=== PATIENT | male | born 1935 | race Two or more races ===

== ENCOUNTER 2021-08-24 06:33 | Day surgery (SDC) | payer OTHER ==
[~2021-08-24] VITALS: Ht 177.8 cm; Wt 88.0 kg
[~2021-08-24 06:33] MED LIST: CASODEX50 MG PO; KEPPRA1000 MG PO; LEVOTHYROXINE25 MCG PO; UROXATRAL10 MG PO; ZOCOR20 MG PO
[2021-08-24] MEDS ORDERED: FLUOCINONIDE15 GM (08:51)
[2021-08-24] MEDS ORDERED: INTEGRA PLUS C1 EACH (08:52)
[2021-08-24] MEDS ORDERED: DICLOFENAC SOD100 MG (08:53)
[2021-08-24] MEDS ORDERED: DICLOFENAC POTA50 MG (08:54)
== END 2021-08-24 16:30 | disposition home or self-care (01) ==
LOC: CIR.AMB 06:33 → SURH 06:33 → O/R 06:33 → SURH 08:00 → EDSTATUS 08:00 → SURH 08:30 → CIR.AMB 16:30 → O/R 16:30
PROVIDERS: ATTEND Urology
DX: C67.5 Malignant neoplasm of bladder neck (principal); Z20.822 Contact with and (suspected) exposure to COVID-19; Z87.891 Personal history of nicotine dependence; E03.9 Hypothyroidism, unspecified; G40.802 Other epilepsy, not intractable, without status epilepticus

== ENCOUNTER 2021-11-23 07:30 | Day surgery (SDC) | payer OTHER ==
[~2021-11-23 07:30] MED LIST changes: +DICLOFENAC POTA50 MG; +DICLOFENAC SOD100 MG; +FLUOCINONIDE15 GM; +INTEGRA PLUS C1 EACH
== END 2021-11-23 16:43 | disposition home or self-care (01) ==
LOC: U 07:30 → CIR.AMB 07:30
PROVIDERS: ATTEND Urology
DX: C61 Malignant neoplasm of prostate (principal); Z20.822 Contact with and (suspected) exposure to COVID-19

== ENCOUNTER → 2022-01-25 | Outpatient (CLI) | payer OTHER | END | disposition home or self-care (01) | LOC: LAB 18:30 | PROVIDERS: ATTEND Urology | DX: N30.00 Acute cystitis without hematuria (principal) ==

== ENCOUNTER 2022-04-19 21:28 | Emergency (ER) | payer OTHER ==
[~2022-04-19] VITALS: Ht 177.8 cm; Wt 83.0 kg
[2022-04-20] MEDS ORDERED: PYRIDIUM100 M1 PO (05:23)
[2022-04-20] MEDS ORDERED: BACTRIM DS TAB1 EACH PO (05:23)
[2022-04-20] MEDS ORDERED: CEFDINIR300 MG PO (05:34)
== END 2022-04-20 05:45 | disposition home or self-care (01) ==
LOC: ER 21:28
DX: N39.0 Urinary tract infection, site not specified (principal); C61 Malignant neoplasm of prostate; R41.0 Disorientation, unspecified; Z20.822 Contact with and (suspected) exposure to COVID-19

== ENCOUNTER 2022-06-30 11:59 | Emergency (ER) | payer OTHER ==
[~2022-06-30] VITALS: Ht 175.3 cm; Wt 72.6 kg
[~2022-06-30 11:59] MED LIST changes: +BACTRIM DS TAB1 EACH PO; +CEFDINIR300 MG PO; +PYRIDIUM100 M1 PO
[2022-06-30] MEDS ORDERED: LEVOFLOXACIN500 MG PO (16:02)
== END 2022-06-30 16:11 | disposition home or self-care (01) ==
LOC: ER 11:59
DX: N39.0 Urinary tract infection, site not specified (principal)

== ENCOUNTER 2022-07-20 15:24 | Emergency (ER) | payer OTHER ==
[~2022-07-20] VITALS: Ht 157.5 cm; Wt 75.7 kg
[~2022-07-20 15:24] MED LIST changes: +LEVOFLOXACIN500 MG PO
[2022-07-20] MEDS ORDERED: MACROBID 100 M100 MG (15:51)
[2022-07-20] MEDS ORDERED: CASODEX50 MG (15:51)
== END 2022-07-20 18:21 | disposition home or self-care (01) ==
LOC: ER 15:24
DX: M94.0 Chondrocostal junction syndrome [Tietze] (principal); N39.0 Urinary tract infection, site not specified; Z20.822 Contact with and (suspected) exposure to COVID-19

== ENCOUNTER 2023-01-02 18:25 | Inpatient (IN) | payer OTHER ==
[~2023-01-02] VITALS: Ht 180.3 cm; Wt 68.0 kg
[~2023-01-02 18:25] MED LIST changes: +CASODEX50 MG; +MACROBID 100 M100 MG
[2023-01-02] MEDS ORDERED: SIMVASTATIN20 MG (18:56)
[2023-01-02] MEDS ORDERED: LAMICTAL25 M1 (18:57)
[2023-01-02] MEDS ORDERED: METHENAMINE HIPP1 GM (18:58)
== END 2023-01-09 11:36 | disposition home or self-care (01) | DRG 689 ==
LOC: ER 18:25 → MEDI 23:15
PROVIDERS: ADMIT Internal Medicine; ATTEND Internal Medicine
PROC: BW21YZZ Computerized Tomography (CT Scan) of Abdomen and Pelvis using Other Contrast (ICD-10-PCS; principal; 2023-01-04)
DX: N39.0 Urinary tract infection, site not specified (principal); A41.9 Sepsis, unspecified organism; E86.0 Dehydration; N41.8 Other inflammatory diseases of prostate; B96.20 Unspecified Escherichia coli [E. coli] as the cause of diseases classified elsewhere; E03.9 Hypothyroidism, unspecified; E78.5 Hyperlipidemia, unspecified; C67.9 Malignant neoplasm of bladder, unspecified; Z20.822 Contact with and (suspected) exposure to COVID-19; I10 Essential (primary) hypertension

== ENCOUNTER 2023-03-31 16:19 | Inpatient (IN) | payer OTHER ==
[~2023-03-31] VITALS: Ht 175.3 cm; Wt 81.6 kg
[~2023-03-31 16:19] MED LIST changes: +LAMICTAL25 M1; +METHENAMINE HIPP1 GM; +SIMVASTATIN20 MG
[2023-03-31] MEDS ORDERED: PEPCID AC10 MG (16:54)
[2023-03-31 18:23] LABS: HEMATOCRIT 38.4 % (39.0-48.0); HEMOGLOBIN 13.3 g/dL (13-16.00); MEAN CELL VOLUME 93.6 fL (80.0-100.00); MEAN CORPUSCULAR HEMOGLOBIN 32.3 pg (27.00-32.0); MEAN CORPUSCULAR HGB CONC 34.5 g/dl (32.0-36.0); PLATELET COUNT 162 K/uL (150-450); RED CELL DISTRIBUTION WIDTH 13.6 % (11.5-14.5)
[2023-03-31 18:55] LABS: CALCIUM 9.3 mg/dL (8.5-10.1); CREATININE SERUM 1.41 mg/dL (0.70-1.30); GFR 47.77; POTASSIUM 3.73 mEq/L (3.5-5.1)
[2023-03-31 19:21] LABS: URINE EPITHELIAL CELLS 3.5 uL (0.0-38.8); URINE RBC 259.4 uL (0.0-20.8)
[2023-03-31 19:30] LABS: PH,URINE 6.5 (5.0-8.0); URINE APPEARANCE Turbid; URINE BILIRRUBIN Negative (NEGATIVE); URINE BLOOD Large; URINE COLOR Yellow; URINE GLUCOSE Negative (NEGATIVE); URINE LEUKOCYTE Large; URINE NITRATE Negative
[2023-03-31 19:45] LABS: URINE PROTEIN 300 (NEGATIVE); URINE WBC > 5548.3 uL (0.0-23.2)
[2023-03-31 19:46] LABS: URINE BACTERIA > 9821.2 uL (0.0-1933)
[2023-04-01 04:04] LABS: INR 1.04; PARTIAL THROMBOPLASTIN TIME 32.5 SECONDS (22.0-34.0); PROTHROMBIN TIME 10.9 SECONDS (9.0-11.5)
[2023-04-02 08:42] LABS: ALBUMIN 2.9 gm/dL (3.4-5.0); BILIRUBIN TOTAL 0.79 mg/dL (0.3-1.2); CALCIUM 8.4 mg/dL (8.5-10.1); CREATININE SERUM 0.94 mg/dL (0.70-1.30); GFR 76.27; POTASSIUM 3.43 mEq/L (3.5-5.1); TOTAL PROTEIN 5.9 gm/dL (6.4-8.2)
[2023-04-02 08:43] LABS: HEMATOCRIT 33.5 % (39.0-48.0); HEMOGLOBIN 12.1 g/dL (13-16.00); MEAN CELL VOLUME 92.3 fL (80.0-100.00); MEAN CORPUSCULAR HEMOGLOBIN 33.2 pg (27.00-32.0); RED BLOOD COUNT 3.63 M/uL (4.00-6.00); RED CELL DISTRIBUTION WIDTH 13.6 % (11.5-14.5)
[2023-04-02 08:49] LABS: PLATELET COUNT 119 K/uL (150-450)
[2023-04-02 10:56] LABS: HEMATOCRIT 34.1 % (39.0-48.0); HEMOGLOBIN 11.9 g/dL (13-16.00); MEAN CELL VOLUME 93.2 fL (80.0-100.00); MEAN CORPUSCULAR HEMOGLOBIN 32.5 pg (27.00-32.0); MEAN CORPUSCULAR HGB CONC 34.9 g/dl (32.0-36.0); RED BLOOD COUNT 3.66 M/uL (4.00-6.00); RED CELL DISTRIBUTION WIDTH 13.5 % (11.5-14.5)
[2023-04-02 10:57] LABS: PLATELET COUNT 126 K/uL (150-450)
[2023-04-02 11:27] LABS: ALBUMIN 3.2 gm/dL (3.4-5.0); CALCIUM 8.6 mg/dL (8.5-10.1); CREATININE SERUM 0.91 mg/dL (0.70-1.30); GFR 79.18; POTASSIUM 3.37 mEq/L (3.5-5.1)
[2023-04-02 11:38] LABS: PHOSPHOROUS 1.9 mg/dL (2.5-4.9)
[2023-04-03 07:02] LABS: BILIRUBIN TOTAL 0.83 mg/dL (0.3-1.2); CALCIUM 8.5 mg/dL (8.5-10.1); CREATININE SERUM 0.9 mg/dL (0.70-1.30); GFR 80.2; GLOBULINA 2.6 G/DL (2.4-3.5); PHOSPHOROUS 2.6 mg/dL (2.5-4.9); POTASSIUM 3.58 mEq/L (3.5-5.1); TOTAL PROTEIN 5.6 gm/dL (6.4-8.2)
[2023-04-03 07:13] LABS: PH,URINE 6.5 (5.0-8.0); URINE APPEARANCE Clear; URINE BILIRRUBIN Negative (NEGATIVE); URINE BLOOD Small; URINE COLOR Yellow; URINE GLUCOSE Negative (NEGATIVE); URINE LEUKOCYTE Small; URINE NITRATE Negative; URINE PROTEIN Negative (NEGATIVE)
[2023-04-03 07:15] LABS: URINE BACTERIA 13.8 uL (0.0-1933); URINE RBC 37.6 uL (0.0-20.8); URINE WBC 279.3 uL (0.0-23.2)
[2023-04-03 07:22] LABS: URINE EPITHELIAL CELLS 1.2 uL (0.0-38.8)
[2023-04-03 07:31] LABS: C-REACTIVE PROTEIN 11.8 MG/DL (0.00-0.29)
[2023-04-03 07:50] LABS: HEMATOCRIT 32.9 % (39.0-48.0); MEAN CELL VOLUME 91.2 fL (80.0-100.00); MEAN CORPUSCULAR HEMOGLOBIN 33.1 pg (27.00-32.0); MEAN CORPUSCULAR HGB CONC 36.3 g/dl (32.0-36.0); RED BLOOD COUNT 3.61 M/uL (4.00-6.00); RED CELL DISTRIBUTION WIDTH 13.4 % (11.5-14.5)
[2023-04-03 08:04] LABS: PLATELET COUNT 133 K/uL (150-450)
[2023-04-05 08:57] LABS: BILIRUBIN TOTAL 0.79 mg/dL (0.3-1.2); CALCIUM 8.6 mg/dL (8.5-10.1); CREATININE SERUM 0.9 mg/dL (0.70-1.30); GFR 80.2; GLOBULINA 2.7 G/DL (2.4-3.5); MAGNESIUM 2.1 mg/dL (1.8-2.4); PHOSPHOROUS 2.9 mg/dL (2.5-4.9); POTASSIUM 4.75 mEq/L (3.5-5.1); TOTAL PROTEIN 5.7 gm/dL (6.4-8.2)
[2023-04-05 15:57] LABS: MEAN CELL VOLUME 92.6 fL (80.0-100.00); MEAN CORPUSCULAR HEMOGLOBIN 31.9 pg (27.00-32.0); MEAN CORPUSCULAR HGB CONC 34.4 g/dl (32.0-36.0); PLATELET COUNT 174 K/uL (150-450); RED BLOOD COUNT 3.78 M/uL (4.00-6.00); RED CELL DISTRIBUTION WIDTH 13.5 % (11.5-14.5)
== END 2023-04-08 16:27 | disposition home or self-care (01) | DRG 872 ==
LOC: ER 16:20 → MEDI 23:41
PROVIDERS: General Practice; Internal Medicine Infectious Disease; ADMIT Internal Medicine; ATTEND Internal Medicine
PROC: B020ZZZ Computerized Tomography (CT Scan) of Brain (ICD-10-PCS; 2023-03-31)
PROC: 0T9B70Z Drainage of Bladder with Drainage Device, Via Natural or Artificial Opening (ICD-10-PCS; principal; 2023-04-07)
DX: A41.9 Sepsis, unspecified organism (principal); N39.0 Urinary tract infection, site not specified; M62.82 Rhabdomyolysis; N17.9 Acute kidney failure, unspecified; B96.20 Unspecified Escherichia coli [E. coli] as the cause of diseases classified elsewhere; Z86.19 Personal history of other infectious and parasitic diseases; C67.9 Malignant neoplasm of bladder, unspecified; W19.XXXA Unspecified fall, initial encounter; E03.9 Hypothyroidism, unspecified; E78.5 Hyperlipidemia, unspecified

== ENCOUNTER 2023-04-11 09:53 | Day surgery (SDC) | payer OTHER ==
[~2023-04-11 09:53] MED LIST changes: +PEPCID AC10 MG
== END 2023-04-11 22:25 | disposition home or self-care (01) ==
LOC: CIR.AMB 09:53
PROVIDERS: ATTEND Urology
DX: C67.9 Malignant neoplasm of bladder, unspecified (principal); Z20.822 Contact with and (suspected) exposure to COVID-19

== ENCOUNTER 2024-01-09 19:14 | Inpatient (IN) | payer OTHER ==
[~2024-01-09] VITALS: Ht 180.3 cm; Wt 83.9 kg
[2024-01-09] MEDS ORDERED: CEFTRIAXONE SODIUM 2,000 MG VIAL ONE (19:52)
[2024-01-09] MEDS ORDERED: 0.9 % SODIUM CHLORIDE 500 ML IV ONE (20:00)
[2024-01-09] MEDS ORDERED: CEFTRIAXONE SODIUM 2,000 MG VIAL IV ONE (20:00)
[2024-01-09 20:34] LABS: HEMATOCRIT 37.3 % (39.0-48.0); MEAN CELL VOLUME 93.5 fL (80.0-100.00); MEAN CORPUSCULAR HEMOGLOBIN 32.6 pg (27.00-32.0); MEAN CORPUSCULAR HGB CONC 34.9 g/dl (32.0-36.0); PLATELET COUNT 182 K/uL (150-450); RED BLOOD COUNT 3.99 M/uL (4.00-6.00); RED CELL DISTRIBUTION WIDTH 13.5 % (11.5-14.5)
[2024-01-09 20:43] LABS: PH,URINE 6.5 (5.0-8.0); URINE APPEARANCE Cloudy; URINE BILIRRUBIN Negative (NEGATIVE); URINE BLOOD Large; URINE COLOR Yellow; URINE GLUCOSE Negative (NEGATIVE); URINE KETONE Negative (NEGATIVE); URINE LEUKOCYTE Large; URINE NITRATE Negative; URINE PROTEIN 30 (NEGATIVE)
[2024-01-09 20:48] LABS: URINE BACTERIA 64.2 uL (0.0-1933); URINE RBC 76.4 uL (0.0-20.8); URINE WBC 1242.3 uL (0.0-23.2)
[2024-01-09 20:55] LABS: ALBUMIN 3.8 gm/dL (3.4-5.0); BILIRUBIN TOTAL 1.45 mg/dL (0.3-1.2); CALCIUM 9.7 mg/dL (8.5-10.1); CREATININE SERUM 1.35 mg/dL (0.70-1.30); GFR 50.11; GLOBULINA 3.1 G/DL (2.4-3.5); POTASSIUM 4.37 mEq/L (3.5-5.1); TOTAL PROTEIN 6.9 gm/dL (6.4-8.2)
[2024-01-09] MEDS ORDERED: MEROPENEM 500 MG/VIAL VIAL IV SCH (21:32)
[2024-01-09 22:05] LABS: ABG PH 7.471 (7.35-7.45); ABG PO2 76.9 mmHg (80-100); ABG pCO2 33.7 mmHg (35-45); SaO2 96.2 %
[2024-01-09 22:06] LABS: Tco2 25.1 mmol/l; allen test SATISFACTORY; o2 21 %; puncture site RADIAL RIGHT
[2024-01-09] MEDS ORDERED: 0.9 % SODIUM CHLORIDE 1,000 ML IV SCH (23:45)
[2024-01-10 00:21] VITALS: BP 139/72; O2SAT 95
[2024-01-10 05:40] VITALS: BP 167/83; O2SAT 95
[2024-01-10] MEDS ORDERED: LEVOTHYROXINE SODIUM 25 MCG TABLET PO SCH (06:00)
[2024-01-10] MEDS ORDERED: LevETIRAcetam 500 MG/5 ML VIAL IV SCH (09:00)
[2024-01-10] MEDS ORDERED: LAMICTAL 25 MG PO SCH (09:00)
[2024-01-10] MEDS ORDERED: TAMSULOSIN HCL 0.4 MG CAP PO SCH (09:00)
[2024-01-10] MEDS ORDERED: ENOXAPARIN SODIUM 30 MG/0.3 ML SYRINGE SUBCUTANEO SCH (09:00)
[2024-01-10 09:14] VITALS: BP 170/90; O2SAT 98
[2024-01-10 15:40] LABS: HEMATOCRIT 38.1 % (39.0-48.0); HEMOGLOBIN 13.5 g/dL (13-16.00); MEAN CELL VOLUME 92.5 fL (80.0-100.00); MEAN CORPUSCULAR HEMOGLOBIN 32.9 pg (27.00-32.0); MEAN CORPUSCULAR HGB CONC 35.5 g/dl (32.0-36.0); PLATELET COUNT 144 K/uL (150-450); RED BLOOD COUNT 4.11 M/uL (4.00-6.00); RED CELL DISTRIBUTION WIDTH 13.3 % (11.5-14.5)
[2024-01-10 16:40] LABS: ALBUMIN 3.4 gm/dL (3.4-5.0); BILIRUBIN TOTAL 0.95 mg/dL (0.3-1.2); CALCIUM 9.1 mg/dL (8.5-10.1); CREATININE SERUM 1.68 mg/dL (0.70-1.30); GFR 38.93; POTASSIUM 3.49 mEq/L (3.5-5.1); TOTAL PROTEIN 6.4 gm/dL (6.4-8.2)
[2024-01-10 16:44] LABS: C-REACTIVE PROTEIN 27.1 MG/DL (0.00-0.29)
[2024-01-10 16:51] LABS: TSH 0.853 uIU/mL (0.358-3.74)
[2024-01-10] MEDS ORDERED: PANTOPRAZOLE SODIUM 40 MG/VIAL VIAL IV SCH (17:00)
[2024-01-10 19:15] VITALS: BP 188/92
[2024-01-11] MEDS ORDERED: LevETIRAcetam 5 MG/1 ML REDILUIDO IV SCH
[2024-01-11] MEDS ORDERED: NIFEDIPINE 30 MG TAB.SA.OSM PO SCH (01:28)
[2024-01-11] MEDS ORDERED: SODIUM CHLORIDE 0.45 % 1,000 ML IV SCH (01:30)
[2024-01-11 02:30] VITALS: BP 128/79; O2SAT 95
[2024-01-11 07:46] LABS: HEMATOCRIT 36.9 % (39.0-48.0); HEMOGLOBIN 13.2 g/dL (13-16.00); MEAN CELL VOLUME 93.1 fL (80.0-100.00); MEAN CORPUSCULAR HEMOGLOBIN 33.2 pg (27.00-32.0); MEAN CORPUSCULAR HGB CONC 35.7 g/dl (32.0-36.0); PLATELET COUNT 149 K/uL (150-450); RED BLOOD COUNT 3.96 M/uL (4.00-6.00); RED CELL DISTRIBUTION WIDTH 13.5 % (11.5-14.5)
[2024-01-11 08:00] VITALS: BP 186/92; O2SAT 97
[2024-01-11 08:12] LABS: PH,URINE 5.5 (5.0-8.0); URINE APPEARANCE Turbid; URINE BILIRRUBIN Negative (NEGATIVE); URINE BLOOD Large; URINE COLOR Yellow; URINE GLUCOSE Negative (NEGATIVE); URINE KETONE Negative (NEGATIVE); URINE LEUKOCYTE Large; URINE NITRATE Negative; URINE UROBILINOGEN 0.2 E.U./dl
[2024-01-11 08:16] LABS: URINE BACTERIA 200.3 uL (0.0-1933); URINE EPITHELIAL CELLS 11.5 uL (0.0-38.8); URINE RBC 112.3 uL (0.0-20.8); URINE WBC 3811.4 uL (0.0-23.2)
[2024-01-11 08:49] LABS: ALBUMIN 3.1 gm/dL (3.4-5.0); BILIRUBIN TOTAL 0.71 mg/dL (0.3-1.2); CALCIUM 8.8 mg/dL (8.5-10.1); CREATININE SERUM 2.08 mg/dL (0.70-1.30); GFR 30.43; GLOBULINA 2.9 G/DL (2.4-3.5); MAGNESIUM 2.4 mg/dL (1.8-2.4); PHOSPHOROUS 3.3 mg/dL (2.5-4.9); POTASSIUM 3.82 mEq/L (3.5-5.1)
[2024-01-11 09:02] LABS: C-REACTIVE PROTEIN 26.2 MG/DL (0.00-0.29)
[2024-01-11 09:49] LABS: URINE CAST 0.76 uL (0.0-1.40)
[2024-01-11 09:50] LABS: URINE PROTEIN 100 (NEGATIVE)
[2024-01-11 14:14] LABS: PROSTATIC SPECIFIC ANTIGEN 16.9 NG/ML (0.010-4.00)
[2024-01-11 18:14] VITALS: BP 136/81
[2024-01-12 03:12] VITALS: BP 119/70; O2SAT 98
[2024-01-12] MEDS ORDERED: NIFEDIPINE 60 MG TAB.SA.OSM PO SCH (09:00)
[2024-01-12 10:26] VITALS: BP 121/65
[2024-01-12] MEDS ORDERED: BENZONATATE 200 MG CAPSULE PO NR (18:00)
[2024-01-12 18:26] VITALS: BP 110/55
[2024-01-12] MEDS ORDERED: HYDROCODONE/CHLORPHEN P-STIREX 5 ML ML PO SCH (21:00)
[2024-01-13 01:45] VITALS: BP 114/56
[2024-01-13 05:29] LABS: HEMATOCRIT 32.2 % (39.0-48.0); MEAN CELL VOLUME 94.3 fL (80.0-100.00); MEAN CORPUSCULAR HGB CONC 34.9 g/dl (32.0-36.0); PLATELET COUNT 166 K/uL (150-450); RED BLOOD COUNT 3.41 M/uL (4.00-6.00); RED CELL DISTRIBUTION WIDTH 13.2 % (11.5-14.5)
[2024-01-13 05:46] LABS: HEMOGLOBIN 11.2 g/dL (13-16.00); MEAN CORPUSCULAR HEMOGLOBIN 32.8 pg (27.00-32.0)
[2024-01-13 06:05] LABS: ALBUMIN 2.8 gm/dL (3.4-5.0); BILIRUBIN TOTAL 0.88 mg/dL (0.3-1.2); CALCIUM 8.4 mg/dL (8.5-10.1); CREATININE SERUM 3.14 mg/dL (0.70-1.30); GFR 18.92; GLOBULINA 2.9 G/DL (2.4-3.5); MAGNESIUM 2.3 mg/dL (1.8-2.4); PHOSPHOROUS 3.7 mg/dL (2.5-4.9); POTASSIUM 3.75 mEq/L (3.5-5.1); TOTAL PROTEIN 5.7 gm/dL (6.4-8.2)
[2024-01-13] MEDS ORDERED: BENZONATATE 200 MG CAPSULE PO SCH (09:00)
[2024-01-13 11:11] VITALS: BP 117/63
[2024-01-13 16:00] VITALS: BP 115/63; O2SAT 100
[2024-01-14 02:49] VITALS: BP 139/67
[2024-01-14 02:50] VITALS: BP 139/67
[2024-01-14 08:24] LABS: HEMATOCRIT 31.1 % (39.0-48.0); HEMOGLOBIN 10.9 g/dL (13-16.00); MEAN CELL VOLUME 93.9 fL (80.0-100.00); MEAN CORPUSCULAR HEMOGLOBIN 32.8 pg (27.00-32.0); MEAN CORPUSCULAR HGB CONC 34.9 g/dl (32.0-36.0); PLATELET COUNT 219 K/uL (150-450); RED BLOOD COUNT 3.31 M/uL (4.00-6.00); RED CELL DISTRIBUTION WIDTH 12.8 % (11.5-14.5)
[2024-01-14 08:44] LABS: ALBUMIN 2.9 gm/dL (3.4-5.0); BILIRUBIN TOTAL 0.69 mg/dL (0.3-1.2); CALCIUM 8.7 mg/dL (8.5-10.1); CREATININE SERUM 1.77 mg/dL (0.70-1.30); GFR 36.66; GLOBULINA 3.2 G/DL (2.4-3.5); MAGNESIUM 2.5 mg/dL (1.8-2.4); PHOSPHOROUS 3.6 mg/dL (2.5-4.9); POTASSIUM 3.67 mEq/L (3.5-5.1); TOTAL PROTEIN 6.1 gm/dL (6.4-8.2)
[2024-01-14] MEDS ORDERED: METHYLPREDNISOLONE SOD SUCC 40 MG VIAL IV SCH (09:15)
[2024-01-14] MEDS ORDERED: LEVALBUTEROL HCL 0.63 MG/3 ML SOLUTION IH SCH ×2 (09:15→13:00)
[2024-01-14 10:42] VITALS: BP 141/65
[2024-01-14 19:00] VITALS: BP 117/66; O2SAT 98
[2024-01-14] MEDS ORDERED: BISACODYL 10 MG/SUPP.RECT SUPP.RECT RECTAL NR (22:30)
[2024-01-15] VITALS (7 sets, daily range): BP systolic 117–148; BP diastolic 60–68; O2SAT 89–97
[2024-01-15 14:41] LABS: ALBUMIN 3.4 gm/dL (3.4-5.0); CALCIUM 9.4 mg/dL (8.5-10.1); CREATININE SERUM 1.76 mg/dL (0.70-1.30); GFR 36.9; MAGNESIUM 2.8 mg/dL (1.8-2.4); PHOSPHOROUS 4.2 mg/dL (2.5-4.9); POTASSIUM 3.52 mEq/L (3.5-5.1)
[2024-01-16] VITALS (9 sets, daily range): BP systolic 106–119; BP diastolic 56–71; O2SAT 93–99
[2024-01-16] MEDS ORDERED: BISACODYL 10 MG/SUPP.RECT SUPP.RECT RECTAL SCH (06:00)
[2024-01-16] MEDS ORDERED: ALBUTEROL SULFATE 3 ML/2.5 MG AMPUL.NEB IH SCH (12:00)
[2024-01-16] MEDS ORDERED: FUROsemide 20 MG/2 ML VIAL IV SCH (21:00)
[2024-01-17] VITALS (8 sets, daily range): BP systolic 110–125; BP diastolic 64–67; O2SAT 95–100
[2024-01-17] MEDS ORDERED: METOCLOPRAMIDE HCL 10 MG in DEXTROSE 5 % IN WATER 50 ML IV SCH (17:19)
[2024-01-17] MEDS ORDERED: POLYETHYLENE GLYCOL 3350 17 GM BLIST.PACK PO SCH (17:22)
[2024-01-18] VITALS (9 sets, daily range): BP systolic 115–118; BP diastolic 58–68; O2SAT 93–98
[2024-01-18 08:27] LABS: HEMATOCRIT 30.1 % (39.0-48.0); HEMOGLOBIN 10.3 g/dL (13-16.00); MEAN CORPUSCULAR HEMOGLOBIN 32.1 pg (27.00-32.0); MEAN CORPUSCULAR HGB CONC 34.1 g/dl (32.0-36.0); PLATELET COUNT 286 K/uL (150-450); RED CELL DISTRIBUTION WIDTH 13.3 % (11.5-14.5)
[2024-01-18 08:33] LABS: ALBUMIN 2.9 gm/dL (3.4-5.0); BILIRUBIN TOTAL 0.7 mg/dL (0.3-1.2); CALCIUM 8.6 mg/dL (8.5-10.1); CREATININE SERUM 2.32 mg/dL (0.70-1.30); GFR 26.83; GLOBULINA 2.6 G/DL (2.4-3.5); PHOSPHOROUS 5.8 mg/dL (2.5-4.9); POTASSIUM 4.22 mEq/L (3.5-5.1); TOTAL PROTEIN 5.5 gm/dL (6.4-8.2)
[2024-01-18] MEDS ORDERED: DEXTROSE 5 % AND 0.9 % NACL 1,000 ML IV SCH (16:34)
[2024-01-18] MEDS ORDERED: ALBUMIN HUMAN 5% 0.05GM/ML (250ML) VIAL IV ONE (16:45)
[2024-01-18] MEDS ORDERED: MAGNESIUM HYDROXIDE 30 ML BLIST.PACK PO ONE (19:20)
[2024-01-18] MEDS ORDERED: MINERAL OIL 30 ML BLIST.PACK PO ONE (19:30)
[2024-01-18] MEDS ORDERED: LACTULOSE 20 G/30 ML BLIST.PACK PO ONE (19:30)
[2024-01-18] MEDS ORDERED: MAGNESIUM HYDROXIDE 400 MG/5 ML ML PO ONE (19:30)
[2024-01-18] MEDS ORDERED: FUROsemide 20 MG/2 ML VIAL IV SCH (19:48)
[2024-01-18 23:19] LABS: ABG PO2 79.9 mmHg (80-100); ABG pCO2 32.3 mmHg (35-45)
[2024-01-18 23:20] LABS: BICARBONATE 20.5 mmol/l (23-25); Tco2 21.4 mmol/l; allen test SATISFACTORY; o2 32 %; puncture site RADIAL LEFT
[2024-01-18 23:23] LABS: SaO2 95.8 %
[2024-01-19] VITALS (8 sets, daily range): BP systolic 145–149; BP diastolic 74–84; O2SAT 95–100
[2024-01-19 06:15] LABS: HEMOGLOBIN 12.1 g/dL (13-16.00); MEAN CELL VOLUME 93.4 fL (80.0-100.00); MEAN CORPUSCULAR HEMOGLOBIN 32.2 pg (27.00-32.0); MEAN CORPUSCULAR HGB CONC 34.5 g/dl (32.0-36.0); PLATELET COUNT 292 K/uL (150-450); RED BLOOD COUNT 3.75 M/uL (4.00-6.00); RED CELL DISTRIBUTION WIDTH 13.6 % (11.5-14.5)
[2024-01-19 06:43] LABS: BILIRUBIN TOTAL 0.78 mg/dL (0.3-1.2); CALCIUM 8.9 mg/dL (8.5-10.1); CREATININE SERUM 1.64 mg/dL (0.70-1.30); GFR 40.03; POTASSIUM 3.84 mEq/L (3.5-5.1)
[2024-01-19 14:48] LABS: ABG PH 7.472 (7.35-7.45); ABG pCO2 33.7 mmHg (35-45)
[2024-01-19 14:49] LABS: ABG PO2 52.9 mmHg (80-100); BASE EXCESS 1.1 mmol/l; BICARBONATE 24.1 mmol/l (23-25); SaO2 89.5 %; Tco2 25.1 mmol/l; allen test SATISFACTORY; o2 21 %; puncture site RADIAL RIGHT
[2024-01-19] MEDS ORDERED: FUROsemide 20 MG/2 ML VIAL IV SCH (21:00)
[2024-01-20] VITALS (8 sets, daily range): BP systolic 90–115; BP diastolic 50–63; O2SAT 85–98
[2024-01-20 08:03] LABS: HEMATOCRIT 32.6 % (39.0-48.0); HEMOGLOBIN 11.3 g/dL (13-16.00); MEAN CELL VOLUME 93.7 fL (80.0-100.00); MEAN CORPUSCULAR HEMOGLOBIN 32.4 pg (27.00-32.0); MEAN CORPUSCULAR HGB CONC 34.6 g/dl (32.0-36.0); PLATELET COUNT 247 K/uL (150-450); RED BLOOD COUNT 3.48 M/uL (4.00-6.00); RED CELL DISTRIBUTION WIDTH 13.5 % (11.5-14.5)
[2024-01-20 08:37] LABS: ALBUMIN 2.7 gm/dL (3.4-5.0); BILIRUBIN TOTAL 0.58 mg/dL (0.3-1.2); CALCIUM 8.7 mg/dL (8.5-10.1); CREATININE SERUM 1.43 mg/dL (0.70-1.30); GFR 46.89; GLOBULINA 2.8 G/DL (2.4-3.5); MAGNESIUM 2.6 mg/dL (1.8-2.4); PHOSPHOROUS 2.3 mg/dL (2.5-4.9); TOTAL PROTEIN 5.5 gm/dL (6.4-8.2)
[2024-01-20 08:56] LABS: POTASSIUM 2.98 mEq/L (3.5-5.1)
[2024-01-20] MEDS ORDERED: DEXTROSE 5 % AND 0.9 % NACL 1,000 ML IV SCH (09:00)
[2024-01-20] MEDS ORDERED: POTASSIUM PHOS,M-BASIC-D-BASIC 18 MM in 0.9 % SODIUM CHLORIDE 250 ML IV NR (16:26)
[2024-01-20 16:40] LABS: PH,URINE 5.5 (5.0-8.0); URINE APPEARANCE Cloudy; URINE BILIRRUBIN Negative (NEGATIVE); URINE BLOOD Small; URINE COLOR Yellow; URINE GLUCOSE Negative (NEGATIVE); URINE KETONE Trace (NEGATIVE); URINE LEUKOCYTE Small; URINE NITRATE Negative; URINE PROTEIN 30 (NEGATIVE); URINE UROBILINOGEN 0.2 E.U./dl
[2024-01-20 16:43] LABS: URINE BACTERIA 60.4 uL (0.0-1933); URINE EPITHELIAL CELLS 24.7 uL (0.0-38.8); URINE RBC 73.7 uL (0.0-20.8); URINE WBC 169.6 uL (0.0-23.2)
[2024-01-20] MEDS ORDERED: VANCOMYCIN HCL 1,000 MG VIAL IV SCH (17:00)
[2024-01-20 17:01] LABS: URINE CAST > 21.83 uL (0.0-1.40)
[2024-01-21] VITALS (9 sets, daily range): BP systolic 112–132; BP diastolic 64–75; O2SAT 89–94
[2024-01-21] MEDS ORDERED: NIFEDIPINE 60 MG TAB.SA.OSM PO SCH (09:00)
[2024-01-21 11:59] LABS: ALBUMIN 2.9 gm/dL (3.4-5.0); BILIRUBIN TOTAL 0.7 mg/dL (0.3-1.2); CALCIUM 8.7 mg/dL (8.5-10.1); CREATININE SERUM 1.45 mg/dL (0.70-1.30); GFR 46.14; GLOBULINA 3.4 G/DL (2.4-3.5); POTASSIUM 3.58 mEq/L (3.5-5.1); TOTAL PROTEIN 6.3 gm/dL (6.4-8.2)
[2024-01-21 12:13] LABS: C-REACTIVE PROTEIN 20.8 MG/DL (0.00-0.29)
[2024-01-21 16:26] LABS: HEMATOCRIT 33.6 % (39.0-48.0); HEMOGLOBIN 11.4 g/dL (13-16.00); MEAN CELL VOLUME 95.6 fL (80.0-100.00); MEAN CORPUSCULAR HEMOGLOBIN 32.5 pg (27.00-32.0); PLATELET COUNT 216 K/uL (150-450); RED BLOOD COUNT 3.52 M/uL (4.00-6.00); RED CELL DISTRIBUTION WIDTH 13.8 % (11.5-14.5)
[2024-01-21 16:51] LABS: ABG PH 7.409 (7.35-7.45); ABG PO2 75.4 mmHg (80-100); BASE EXCESS 0.5 mmol/l; BICARBONATE 25.2 mmol/l (23-25); SaO2 95.1 %; Tco2 26.4 mmol/l
[2024-01-21] MEDS ORDERED: DEXTROSE 5 %-0.45 % SOD CHLORD 1,000 ML IV SCH (17:16)
[2024-01-21 19:51] LABS: ABG pCO2 40.7 mmHg (35-45); allen test SATISFACTORY; o2 100 %; puncture site RADIAL LEFT
[2024-01-22] VITALS (9 sets, daily range): BP systolic 126–137; BP diastolic 62–64; O2SAT 90–100
[2024-01-22 09:22] LABS: HEMATOCRIT 30.8 % (39.0-48.0); HEMOGLOBIN 10.4 g/dL (13-16.00); MEAN CELL VOLUME 95.8 fL (80.0-100.00); MEAN CORPUSCULAR HEMOGLOBIN 32.4 pg (27.00-32.0); MEAN CORPUSCULAR HGB CONC 33.9 g/dl (32.0-36.0); PLATELET COUNT 160 K/uL (150-450); RED BLOOD COUNT 3.22 M/uL (4.00-6.00); RED CELL DISTRIBUTION WIDTH 13.6 % (11.5-14.5)
[2024-01-22 10:00] LABS: ALBUMIN 2.6 gm/dL (3.4-5.0); BILIRUBIN TOTAL 0.56 mg/dL (0.3-1.2); CALCIUM 8.7 mg/dL (8.5-10.1); CREATININE SERUM 1.44 mg/dL (0.70-1.30); GFR 46.51; GLOBULINA 3.2 G/DL (2.4-3.5); MAGNESIUM 2.4 mg/dL (1.8-2.4); PHOSPHOROUS 3.1 mg/dL (2.5-4.9); POTASSIUM 3.38 mEq/L (3.5-5.1); TOTAL PROTEIN 5.8 gm/dL (6.4-8.2)
[2024-01-22] MEDS ORDERED: DEXTROSE 5 % IN WATER 1,000 ML IV SCH (10:45)
[2024-01-22] MEDS ORDERED: POTASSIUM CHLORIDE 20MEQ/100ML H2O PB IV ONE (20:30)
[2024-01-23] VITALS (8 sets, daily range): BP systolic 123–150; BP diastolic 53–73; O2SAT 95–100
[2024-01-24] VITALS (7 sets, daily range): BP systolic 156–1314; BP diastolic 63–70; O2SAT 94–99
[2024-01-25 02:17] VITALS: BP 151/78; O2SAT 93
[2024-01-25 09:01] VITALS: O2SAT 98
[2024-01-25 09:11] LABS: HEMATOCRIT 36.1 % (39.0-48.0); HEMOGLOBIN 11.9 g/dL (13-16.00); MEAN CELL VOLUME 97.6 fL (80.0-100.00); MEAN CORPUSCULAR HEMOGLOBIN 32.2 pg (27.00-32.0); RED CELL DISTRIBUTION WIDTH 14.2 % (11.5-14.5)
[2024-01-25 09:14] LABS: ALBUMIN 1.8 gm/dL (3.4-5.0); CALCIUM 8.2 mg/dL (8.5-10.1); CREATININE SERUM 1.07 mg/dL (0.70-1.30); GFR 65.53
[2024-01-25 09:36] VITALS: BP 145/69
[2024-01-25 09:38] LABS: PLATELET COUNT 89 K/uL (150-450)
[2024-01-25 10:26] LABS: PHOSPHOROUS 1.6 mg/dL (2.5-4.9); POTASSIUM 2.64 mEq/L (3.5-5.1)
[2024-01-25] MEDS ORDERED: DEXTROSE 5 % IN WATER 1,000 ML IV SCH (10:45)
[2024-01-25] MEDS ORDERED: POTASSIUM PHOS,M-BASIC-D-BASIC 3 MM/ML VIAL IV NR (11:00)
[2024-01-25 12:10] VITALS: O2SAT 96
[2024-01-25] MEDS ORDERED: POTASSIUM CHLORIDE 20MEQ/100ML H2O PB IV SCH (13:00)
[2024-01-25 20:38] VITALS: BP 133/74; O2SAT 100
[2024-01-25 21:08] VITALS: O2SAT 97
[2024-01-25] MEDS ORDERED: POTASSIUM CHLORIDE IN WATER 40 MEQ/100 ML PIGGYBAG IV ONE (22:32)
[2024-01-25] MEDS ORDERED: POTASSIUM CHLORIDE 20MEQ/100ML H2O PB IV ONE (22:35)
[2024-01-26] VITALS (9 sets, daily range): BP systolic 123–145; BP diastolic 64–75; O2SAT 80–99
[2024-01-26] MEDS ORDERED: ANIDULAFUNGIN 100 MG VIAL IV NR (13:14)
[2024-01-26 13:45] LABS: ALBUMIN 1.5 gm/dL (3.4-5.0); BILIRUBIN TOTAL 0.75 mg/dL (0.3-1.2); CALCIUM 7.8 mg/dL (8.5-10.1); CREATININE SERUM 1.39 mg/dL (0.70-1.30); GFR 48.45; GLOBULINA 3.1 G/DL (2.4-3.5); TOTAL PROTEIN 4.6 gm/dL (6.4-8.2)
[2024-01-26 14:18] LABS: POTASSIUM 2.84 mEq/L (3.5-5.1)
[2024-01-26] MEDS ORDERED: POTASSIUM CHLORIDE 20MEQ/100ML H2O PB IV SCH (17:00)
[2024-01-26] MEDS ORDERED: VANCOMYCIN HCL 1,000 MG VIAL IV SCH (17:00)
[2024-01-27] VITALS (10 sets, daily range): BP systolic 101–136; BP diastolic 58–81; O2SAT 96–99
[2024-01-27] MEDS ORDERED: ANIDULAFUNGIN 100 MG VIAL IV SCH (09:00)
[2024-01-27 11:08] LABS: ALBUMIN 1.5 gm/dL (3.4-5.0); BILIRUBIN TOTAL 0.62 mg/dL (0.3-1.2); CALCIUM 8.1 mg/dL (8.5-10.1); CREATININE SERUM 2.31 mg/dL (0.70-1.30); GFR 26.96; GLOBULINA 3.5 G/DL (2.4-3.5); MAGNESIUM 2.6 mg/dL (1.8-2.4); PHOSPHOROUS 5.7 mg/dL (2.5-4.9); POTASSIUM 3.41 mEq/L (3.5-5.1)
[2024-01-27 11:21] LABS: C-REACTIVE PROTEIN 36.9 MG/DL (0.00-0.29)
[2024-01-27] MEDS ORDERED: MEROPENEM 500 MG/VIAL VIAL IV SCH (17:00)
[2024-01-27 17:32] LABS: URINE APPEARANCE Turbid; URINE BILIRRUBIN Small (NEGATIVE); URINE BLOOD Large; URINE COLOR Dark Yellow; URINE KETONE Trace (NEGATIVE); URINE LEUKOCYTE Trace; URINE NITRATE Negative
[2024-01-27 17:35] LABS: URINE BACTERIA 277.1 uL (0.0-1933); URINE RBC 62.9 uL (0.0-20.8)
[2024-01-27 18:28] LABS: URINE CAST > 21.83 uL (0.0-1.40); URINE EPITHELIAL CELLS > 201.7 uL (0.0-38.8); URINE GLUCOSE 100 MG/DL (NEGATIVE); URINE PROTEIN 100 (NEGATIVE)
[2024-01-27 18:29] LABS: URINE CRYSTALS MANY /HPF; URINE MUCUS SCANT
[2024-01-28 02:00] VITALS: BP 106/61; O2SAT 98
[2024-01-28 05:18] VITALS: O2SAT 99
[2024-01-28 08:42] LABS: HEMATOCRIT 31.2 % (39.0-48.0); MEAN CELL VOLUME 99.4 fL (80.0-100.00); MEAN CORPUSCULAR HGB CONC 32.1 g/dl (32.0-36.0); RED BLOOD COUNT 3.14 M/uL (4.00-6.00); RED CELL DISTRIBUTION WIDTH 14.6 % (11.5-14.5)
[2024-01-28 08:46] LABS: PLATELET COUNT 46 K/uL (150-450)
[2024-01-28 09:08] VITALS: BP 82/50; O2SAT 91
[2024-01-28 09:36] LABS: ALBUMIN 1.5 gm/dL (3.4-5.0); BILIRUBIN TOTAL 0.42 mg/dL (0.3-1.2); CALCIUM 7.8 mg/dL (8.5-10.1); CREATININE SERUM 3.66 mg/dL (0.70-1.30); GFR 15.85; GLOBULINA 3.3 G/DL (2.4-3.5); MAGNESIUM 2.3 mg/dL (1.8-2.4); PHOSPHOROUS 6.3 mg/dL (2.5-4.9); POTASSIUM 3.75 mEq/L (3.5-5.1); TOTAL PROTEIN 4.8 gm/dL (6.4-8.2)
[2024-01-28 09:42] VITALS: O2SAT 98
[2024-01-28 13:29] VITALS: O2SAT 100
[2024-01-29] MEDS ORDERED: VANCOMYCIN HCL 1,000 MG VIAL IV SCH (17:00)
== END 2024-01-28 20:42 | disposition expired | DRG 987 ==
LOC: ER 19:14 → MEDJ 23:31
PROVIDERS: General Practice; Internal Medicine; Internal Medicine Infectious Disease; Nurse Practitioner Family; Urology; ADMIT Internal Medicine; ATTEND Internal Medicine
PROC: B020ZZZ Computerized Tomography (CT Scan) of Brain (ICD-10-PCS; 2024-01-09)
PROC: BW24ZZZ Computerized Tomography (CT Scan) of Chest and Abdomen (ICD-10-PCS; 2024-01-09)
PROC: BT4JZZZ Ultrasonography of Kidneys and Bladder (ICD-10-PCS; 2024-01-11)
PROC: BT4JZZZ Ultrasonography of Kidneys and Bladder (ICD-10-PCS; 2024-01-11)
PROC: BW24ZZZ Computerized Tomography (CT Scan) of Chest and Abdomen (ICD-10-PCS; 2024-01-13)
PROC: BW21ZZZ Computerized Tomography (CT Scan) of Abdomen and Pelvis (ICD-10-PCS; 2024-01-13)
PROC: 0W9H3ZX Drainage of Retroperitoneum, Percutaneous Approach, Diagnostic (ICD-10-PCS; principal; 2024-01-15)
PROC: 4A12X4Z Monitoring of Cardiac Electrical Activity, External Approach (ICD-10-PCS; 2024-01-15)
PROC: 0D9670Z Drainage of Stomach with Drainage Device, Via Natural or Artificial Opening (ICD-10-PCS; 2024-01-16)
PROC: BW21ZZZ Computerized Tomography (CT Scan) of Abdomen and Pelvis (ICD-10-PCS; 2024-01-16)
PROC: B24BYZZ Ultrasonography of Heart with Aorta using Other Contrast (ICD-10-PCS; 2024-01-19)
PROC: 0D9P70Z Drainage of Rectum with Drainage Device, Via Natural or Artificial Opening (ICD-10-PCS; 2024-01-21)
PROC: BW24ZZZ Computerized Tomography (CT Scan) of Chest and Abdomen (ICD-10-PCS; 2024-01-21)
PROC: 02HV33Z Insertion of Infusion Device into Superior Vena Cava, Percutaneous Approach (ICD-10-PCS; 2024-01-22)
DX: N39.0 Urinary tract infection, site not specified (principal); A41.9 Sepsis, unspecified organism; J69.0 Pneumonitis due to inhalation of food and vomit; E87.0 Hyperosmolality and hypernatremia; J90 Pleural effusion, not elsewhere classified; N17.9 Acute kidney failure, unspecified; K56.609 Unspecified intestinal obstruction, unspecified as to partial versus complete obstruction; K56.0 Paralytic ileus; J98.11 Atelectasis; B96.20 Unspecified Escherichia coli [E. coli] as the cause of diseases classified elsewhere; R00.0 Tachycardia, unspecified; N13.30 Unspecified hydronephrosis; N18.9 Chronic kidney disease, unspecified; C67.9 Malignant neoplasm of bladder, unspecified; E03.9 Hypothyroidism, unspecified; F03.90 Unspecified dementia, unspecified severity, without behavioral disturbance, psychotic disturbance, mood disturbance, and anxiety; R06.02 Shortness of breath; R09.02 Hypoxemia; G70.9 Myoneural disorder, unspecified; G70.00 Myasthenia gravis without (acute) exacerbation; R60.1 Generalized edema; I50.9 Heart failure, unspecified; I11.0 Hypertensive heart disease with heart failure; K56.41 Fecal impaction; D72.829 Elevated white blood cell count, unspecified; Z66 Do not resuscitate; I46.9 Cardiac arrest, cause unspecified